=== PATIENT | female | born 1990 | race Caucasian/White ===

== ENCOUNTER 2017-05-04 17:37 | Emergency (ER) | payer OTHER ==
[~2017-05-04] VITALS: Wt 86.2 kg
[~2017-05-04 17:37] MED LIST: ALBUTEROL0.09 MG/A2 IH; ANTIVERT25 MG PO; ATIVAN0.5 MG PO; BACTRIM DS 8001 TA1 PO; CLEOCIN HCL150 MG PO; DECADRON4 MG PO; FLEXERIL10 MG PO; HYDROCODONE BIT1 T11 PO; MOTRIN600 MG PO; MOTRIN800 MG PO; PREDNISONE10 MG PO; PROZAC40 MG PO; VISTARIL25 M2 PO; XANAX1 MG PO; ZYRTEC10 MG PO
[2017-05-04] MEDS ORDERED: FLUTICASON0.05 MG/AC NAS (17:53)
[2017-05-04] MEDS ORDERED: ALL DAY ALLERGY10 MG PO (17:53)
[2017-05-04] MEDS ORDERED: NAPROSYN500 MG PO (19:00)
== END 2017-05-04 19:03 | disposition home or self-care (01) ==
LOC: ED 17:37
DX: M79.671 Pain in right foot (principal); F17.200 Nicotine dependence, unspecified, uncomplicated; Z88.0 Allergy status to penicillin; Z88.1 Allergy status to other antibiotic agents

== ENCOUNTER → 2018-07-28 | Outpatient (CLI) | payer BC ==
[~2018-07-28] MED LIST changes: +ALL DAY ALLERGY10 MG PO; +FLUTICASON0.05 MG/AC NAS; +NAPROSYN500 MG PO
== END | disposition home or self-care (01) ==
LOC: US 11:25
DX: M79.661 Pain in right lower leg (principal)

== ENCOUNTER → 2018-12-23 | Outpatient (CLI) | payer BC ==
--- NOTE | ~2018-12-23 | HM ---
[place], [place] HOLTER MONITOR REPORT NAME: ISMAEL KOTHARI UNIT #: [id number] ROOM: DOCTOR: SCOTT REED MD BIRTHDATE: [birth year] DOS: HOLTER MONITOR REPORT REASON OF TEST: Palpitations. This is a 24-hour Holter monitor, so average heart rate was 77 beats per minute. Minimum heart rate was 47. Maximum heart rate was 132 beats per minute. Ventricular ectopic activity consisted of 189 beats of which 188 were in single PVCs, one was single ventricular ectopic. The patient's rhythm included 6 hours and 32 minutes of bradycardia and slowest single episode of bradycardia lasted about 18 minutes and 14 seconds with a minimum heart rate of 47 beats per minute. There was 3-hour and 7-minute time of tachycardia. The fastest episode lasted for 31 seconds with maximum heart rate of 132 beats per minute. Supraventricular ectopic activity consisted of 26 beats of which 4 were in atrial couplets, 5 were late beats, 17 were single PACs. IMPRESSION: This is normal Holter except for ectopic activity. SCOTT REED MD CM:HOLTER:HOLTER MONITOR REPORT [id number] SOCTT REED MD
--- NOTE | ~2018-12-23 | EKG ---
[place], [place] ELECTROCARDIOGRAM REPORT NAME: ISMAEL KOTHARI UNIT #: [id number] ROOM: DOCTOR: SCOTT REED MD BIRTHDATE: [birth year] DOS: HOLTER MONITOR REPORT REASON OF TEST: Palpitations. This is a 24-hour Holter monitor, so average heart rate was 77 beats per minute. Minimum heart rate was 47. Maximum heart rate was 132 beats per minute. Ventricular ectopic activity consisted of 189 beats of which 188 were in single PVCs, one was single ventricular ectopic. The patient's rhythm included 6 hours and 32 minutes of bradycardia and slowest single episode of bradycardia lasted about 18 minutes and 14 seconds with a minimum heart rate of 47 beats per minute. There was 3-hour and 7-minute time of tachycardia. The fastest episode lasted for 31 seconds with maximum heart rate of 132 beats per minute. Supraventricular ectopic activity consisted of 26 beats of which 4 were in atrial couplets, 5 were late beats, 17 were single PACs. IMPRESSION: This is normal Holter except for ectopic activity. SCOTT REED MD CM:EKGRPT:ELECTROCARDIOGRAM REPORT [id number] SCOTT REED MD
== END | disposition home or self-care (01) ==
LOC: CARD 12-22 03:01
DX: R00.2 Palpitations (principal)

== ENCOUNTER → 2019-08-16 | Outpatient (CLI) | payer BC ==
[2019-08-16 17:25] LABS: BASO # 0.1 10*3/uL (0.0-0.1); BASO % 0.8 % (0.0-1.0); EOS # 0.2 10*3/uL (0.0-0.4); HEMOGLOBIN 15.5 g/dl (14.0-18.0); LYMPH # 2.7 10*3/uL (1.3-4.4); LYMPH % 23.6 % (27.0-41.0); MEAN CELL VOLUME 89.2 fl (80.0-94.0); MEAN CORPUSCULAR HGB 29.4 pg (27.0-31.0); MEAN PLATELET VOLUME 12.3 fl (9.6-12.3); MONO % 8.3 % (3.0-9.0); NEUT # 7.5 10*3/uL (2.3-7.9); NEUT % 64.9 % (47.0-73.0); PLATELET COUNT AUTOMATED 259 10*3/uL (130-400); RED BLOOD COUNT 5.27 10*6/uL (4.50-5.90); RED CELL DISTRI WIDTH 11.9 % (0-14.5); WHITE BLOOD COUNT 11.6 10*3/uL (4.8-10.8)
[2019-08-16 17:42] LABS: ALKALINE PHOSPHATASE 79 U/L (45-117); BUN 14 mg/dl (7-24); CHLORIDE 105 mmol/L (98-107); CHOLESTEROL 134 mg/dL (<200); CREATININE 0.88 mg/dL (0.70-1.30); HDL CHOLESTEROL 42 mg/dl (40-60); LDL CHOLESTEROL 71 mg/dL (9-159); POTASSIUM 3.6 mmol/L (3.5-5.1); SGOT/AST 27 IU/L (3-35); SGPT/ALT 43 U/L (12-78); SODIUM 140 mmol/L (136-145); TOTAL PROTEIN 7.2 gm/dL (6.4-8.2); TRIGLYCERIDES 103 mg/dl (<150); VLDL CHOLESTEROL 21 mg/dL (6-40)
== END | disposition home or self-care (01) ==
LOC: LAB 16:46
PROVIDERS: Nurse Practitioner Family
DX: I10 Essential (primary) hypertension (principal); R00.2 Palpitations

== ENCOUNTER → 2019-09-10 | Outpatient (CLI) | payer BC | END | disposition home or self-care (01) | LOC: CARD 08:15 | DX: I51.7 Cardiomegaly (principal) ==